=== PATIENT | female | born 1985 | race Caucasian/White ===

== ENCOUNTER 2017-05-04 16:04 | Inpatient (IN) | payer MEDICAID, OTHER ==
[~2017-05-04] VITALS: Ht 162.6 cm; Wt 65.5 kg
[2017-05-04 16:39] LABS: BASOPHILS % (AUTO) 0.2 % (0.0-2.0); EOSINOPHILS % (AUTO) 0.8 % (1.0-6.0); HEMATOCRIT 40.7 % (36-46); HEMOGLOBIN 13.5 g/dL (12.0-16.0); LYMPHOCYTES # (AUTO) 2.6 K/uL (1.0-4.8); LYMPHOCYTES % (AUTO) 38.9 % (22.0-44.0); MEAN CORPUSCULAR HGB CONC 33.1 G/dL (31.0-37.0); MEAN CORPUSCULAR VOLUME 82 fL (80-100); MONOCYTES # (AUTO) 0.5 K/uL (0.1-1.0); MONOCYTES % (AUTO) 7.3 % (2.0-9.0); NEUTROPHILS # (AUTO) 3.5 K/uL (1.8-7.7); NEUTROPHILS % (AUTO) 52.8 % (40.0-70.0); PLATELET COUNT (AUTO) 278 K/uL (150-450); RED BLOOD CELL COUNT(AUTO) 4.99 MIL/uL (4.00-5.20); RED CELL DISTRIBUTION WIDTH 15.8 % (11.5-14.5); WHITE BLOOD COUNT (AUTO) 6.7 K/uL (4.5-11.0)
[2017-05-04 16:53] LABS: ANION GAP 9 mmol/L (8-16); CALCIUM, TOTAL 9.6 mg/dL (8.8-10.5); CARBON DIOXIDE 28 mmol/L (22-29); CHLORIDE 100 mmol/L (98-107); CREATININE 0.82 mg/dL (0.60-1.30); GLOMERULAR FILTR. RATE CALC > 60 mL/min (>60); POTASSIUM 3.9 mmol/L (3.5-5.1); SODIUM SERUM 137 mmol/L (136-145); UREA NITROGEN, BLOOD 12 mg/dL (7-18)
[2017-05-04 17:00] LABS: ALANINE AMINOTRANSFERASE 21 U/L (12-78); ALBUMIN 4.2 g/dL (3.4-5.0); ASPARTATE AMINOTRANSFERASE 16 U/L (15-37); BILIRUBIN,TOTAL 0.3 mg/dL (0.1-1.0); TOTAL PROTEIN, SERUM 8.2 g/dL (6.4-8.2)
[2017-05-04] MEDS ORDERED: PALI156D IM (17:09)
[2017-05-04] MEDS ORDERED: QUET100T PO (17:09)
[2017-05-04] MEDS ORDERED: TRAZ-144 PO (17:09)
[2017-05-04] MEDS ORDERED: HALOPERIDOL 5 MG TABLET PO ONE (17:15)
[2017-05-04] MEDS ORDERED: LORazepam 2 MG TABLET PO ONE (17:15)
[2017-05-04] MEDS ORDERED: DiphenhydrAMINE HCL 25 MG CAPSULE PO ONE (17:15)
[2017-05-04 17:37] LABS: APPEARANCE,URINE CLOUDY (CLEAR); GLUCOSE, URINE (UA) NEGATIVE (NEGATIVE); KETONES,URINE NEGATIVE (NEGATIVE); LEUKOCYTE ESTERASE ,URINE SMALL (NEGATIVE); OCCULT BLOOD,URINE NEGATIVE (NEGATIVE); PH,URINE 6.5 (5.0-8.0); PROTEIN,URINE NEGATIVE (NEGATIVE)
[2017-05-04 17:38] LABS: ADD UA MICROSCOPIC YES
[2017-05-04 17:49] LABS: RBC,URINE 0-2 /HPF (0-2)
[2017-05-04 17:50] LABS: SQUAMOUS EPITHELIAL CELL,UR Few /LPF (None Seen)
[2017-05-04] MEDS ORDERED: ZOLPIDEM TARTRATE 10 MG TABLET PO PRN (18:00)
[2017-05-04 19:45] VITALS: BP 112/79
[2017-05-04] MEDS: QUEtiapine FUMARATE 100 MG TABLET PO SCH (21:49)
[2017-05-04] MEDS: TraZODone HCL 50 MG TABLET PO SCH (21:49)
[2017-05-05 00:01] VITALS: BP 102/64
[2017-05-05] MEDS ORDERED: MAG HYDROX/AL HYDROX/SIMETH ES 30 ML SUSPENSION UDCUP PO PRN (08:30)
[2017-05-05] MEDS ORDERED: ACETAMINOPHEN 325 MG TABLET PO PRN (08:30)
[2017-05-05] MEDS ORDERED: LOPERAMIDE HCL 2 MG CAPSULE PO PRN (08:30)
[2017-05-05] MEDS ORDERED: BACITRACIN 28.4 GM OINTMENT TP PRN (08:30)
[2017-05-05] MEDS ORDERED: PETROLATUM,WHITE 71 GM JELLY TP PRN (08:30)
[2017-05-05] MEDS ORDERED: MAGNESIUM HYDROXIDE SUSPENSION 30 ML UDCUP PO PRN (08:30)
[2017-05-05] MEDS ORDERED: IBUPROFEN 600 MG TABLET PO PRN (08:30)
[2017-05-05] MEDS ORDERED: ALBUTEROL SULFATE HFA 90 MCG/PUFF 8 GM INHALER IH PRN (08:30)
[2017-05-05] MEDS ORDERED: ONDANSETRON HCL 4 MG TABLET PO PRN (08:30)
[2017-05-05] MEDS ORDERED: CloNIDine HCL 0.1 MG TABLET PO PRN (08:30)
[2017-05-05] MEDS ORDERED: BENZOCAINE/MENTHOL LOZENGE MM PRN (08:30)
[2017-05-05 09:00] VITALS: BP 119/74
[2017-05-05 09:27] LABS: CHOL/HDL RATIO 3.5 (3.9-5.7); THYROID STIMULATING HORMONE 0.97 uIU/mL (0.36-3.74)
[2017-05-05 16:00] VITALS: BP 110/64
[2017-05-05] MEDS: LORazepam 2 MG TABLET PO PRN (17:28)
[2017-05-05] MEDS: TraZODone HCL 50 MG TABLET PO SCH (20:26)
[2017-05-05] MEDS: QUEtiapine FUMARATE 100 MG TABLET PO SCH (20:26)
[2017-05-06] VITALS (9 sets, daily range): BP systolic 100–120; BP diastolic 60–96
[2017-05-06] MEDS: LORazepam 2 MG TABLET PO PRN (15:58)
[2017-05-06] MEDS: HALOPERIDOL 5 MG TABLET PO PRN (15:58)
[2017-05-06] MEDS: TraZODone HCL 50 MG TABLET PO SCH (21:00)
[2017-05-06] MEDS: QUEtiapine FUMARATE 100 MG TABLET PO SCH (21:00)
[2017-05-07 01:18] VITALS: BP 110/60
[2017-05-07 01:19] VITALS: BP 110/60
[2017-05-07 08:04] VITALS: BP 111/68
[2017-05-07] MEDS: LORazepam 2 MG TABLET PO PRN ×2 (09:16→16:13)
[2017-05-07] MEDS: HALOPERIDOL 5 MG TABLET PO PRN ×2 (09:16→16:12)
[2017-05-07 09:17] VITALS: BP 111/68
[2017-05-07] MEDS: CIPROFLOXACIN HCL 250 MG TABLET PO SCH (16:12)
[2017-05-07] MEDS ORDERED: LORazepam 2 MG/ML VIAL IM ONE (17:30)
[2017-05-07] MEDS ORDERED: DiphenhydrAMINE HCL 50 MG/ML VIAL IM ONE (17:30)
[2017-05-07] MEDS ORDERED: HALOPERIDOL LACTATE 5 MG/ML VIAL IM ONE (17:30)
[2017-05-07 17:34] VITALS: BP 109/71
[2017-05-07 19:00] VITALS: BP 115/69
[2017-05-07] MEDS: QUEtiapine FUMARATE 100 MG TABLET PO SCH (21:00)
[2017-05-07] MEDS: TraZODone HCL 50 MG TABLET PO SCH (21:00)
[2017-05-08 01:05] VITALS: BP 102/66
[2017-05-08 01:21] VITALS: BP 102/66
[2017-05-08] MEDS: CIPROFLOXACIN HCL 250 MG TABLET PO SCH ×2 (08:45→16:10)
[2017-05-08] MEDS: HALOPERIDOL 5 MG TABLET PO PRN ×2 (09:50→16:58)
[2017-05-08] MEDS: LORazepam 2 MG TABLET PO PRN ×2 (09:50→16:58)
[2017-05-08 10:09] VITALS: BP 107/80
[2017-05-08 16:25] VITALS: BP 104/71
[2017-05-08] MEDS: QUEtiapine FUMARATE 100 MG TABLET PO SCH (20:37)
[2017-05-08] MEDS: TraZODone HCL 50 MG TABLET PO SCH (20:37)
[2017-05-09 07:14] VITALS: BP 110/75
[2017-05-09 09:00] VITALS: BP 107/70
[2017-05-09] MEDS: CIPROFLOXACIN HCL 250 MG TABLET PO SCH ×2 (09:14→16:33)
[2017-05-09 09:37] VITALS: BP 107/67
[2017-05-09] MEDS: HALOPERIDOL 5 MG TABLET PO PRN ×2 (12:33→16:33)
[2017-05-09 16:33] VITALS: BP 108/76
[2017-05-09] MEDS: LORazepam 2 MG TABLET PO PRN (16:33)
[2017-05-09 16:42] VITALS: BP 109/70
[2017-05-09] MEDS: TraZODone HCL 50 MG TABLET PO SCH (20:52)
[2017-05-09] MEDS: QUEtiapine FUMARATE 100 MG TABLET PO SCH (20:52)
[2017-05-10 00:30] VITALS: BP 108/76
[2017-05-10 06:30] VITALS: BP 100/64
[2017-05-10 09:05] VITALS: BP 106/65
[2017-05-10] MEDS: CIPROFLOXACIN HCL 250 MG TABLET PO SCH (09:05)
[2017-05-10] MEDS: LORazepam 2 MG TABLET PO PRN (16:00)
[2017-05-10 16:22] VITALS: BP 113/64
[2017-05-10] MEDS: QUEtiapine FUMARATE 100 MG TABLET PO SCH (16:33)
[2017-05-10] MEDS: HALOPERIDOL 5 MG TABLET PO PRN (16:40)
[2017-05-10] MEDS: TraZODone HCL 50 MG TABLET PO SCH (20:48)
[2017-05-11] MEDS: QUEtiapine FUMARATE 100 MG TABLET PO SCH (08:49)
[2017-05-11 08:51] VITALS: BP 104/61
== END 2017-05-11 13:30 | disposition home or self-care (01) | DRG 750 ==
LOC: EMS 16:07 → B2S 18:15
PROVIDERS: ADMIT Psychiatry & Neurology Child & Adolescent Psychiatry; ATTEND Psychiatry & Neurology Child & Adolescent Psychiatry
DX: F20.0 Paranoid schizophrenia (principal); R45.851 Suicidal ideations; N39.0 Urinary tract infection, site not specified; G47.00 Insomnia, unspecified; Z98.51 Tubal ligation status; Z88.2 Allergy status to sulfonamides; Z91.018 Allergy to other foods
CPT/HCPCS: 84439; 84443; 87081; 99285; G0480; J1200; J1630; J2060; Q0162